=== PATIENT | male | born 1990 | race Caucasian/White ===

== ENCOUNTER 2016-04-18 14:30 | Outpatient (CLI) ==
--- NOTE | 2016-04-18 16:21 | MRI ---
EXAM: MRI lumbar spine without IV contrast. DATE: April 2016. HISTORY: Lumbar lumbar back pain. Disc syndrome. TECHNIQUE: Sagittal and axial T1W and T2W sequences of the lumbar spine along with sagittal IR and coronal T2W sequences were obtained using 1.2 Yasmine magnet. No IV contrast. COMPARISON: None. FINDINGS: There are four classic [id number] lumbar vertebra ( L1 through L4). At the lumbosac ral junction, there is pseudoarticulation of the left L5 transverse process with the left S1 sacral ala. Twelfth ribs appear hypoplastic. Minimal (5 degrees) leftward curvature of the lumbar spine is present, with the apex of curvature at L3-4. No acute lumbar fracture, subluxation, osseous malignancy, or pars interarticularis defect i s identified. Lumbar vertebra are normal in height. Bone marrow signal is normal. Tiny, chronic S chmorl's nodes are seen at L4 and L5 superior endplates. Disc desiccation and minor disc space narr owing are present at L4-5. 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 No sacral fracture or stress reaction is identified. Conus medullaris ter minates at L1. Visible spinal cord is normal. No retroperitoneal lymphadenopathy, paraspinal mass, or aortic aneurysm is detected. Paraspinal mus culature is symmetric bilaterally. Visible portions of the liver, pancreas, spleen, right adrenal g land, and kidneys are normal. Segmental analysis: T12-L1: Normal. L1-2: Normal. L2-3: Normal. L3-4: Minor concentric disc bulge, superimposed midline to left foraminal disc protrusion (3.1 mm A P x 2 cm transverse) causes mild central canal stenosis and mild narrowing of focal left foraminal o pening. The disc protrusion slightly posteriorly displaces the left L4 nerve root (still in the the cheryl sac). L4-5: Moderate posterior disc bulge (with midline annular fissure) extends from foramen to foramen, and combined with mild facet arthropathy causes mild central canal stenosis and mild narrowing at t he opening to each foramen. Each L4 nerve root contacts the disc bulge near the lateral margin of t he foramen. L5-S1: Normal. IMPRESSIONS: 1. Four classic lumbar vertebra, plus partial sacralization of L5. 2. Mild DDD and mild central canal stenoses at C3-4 and C4-5. 3. Mild foraminal stenoses at C3-4 and C4-5. Each L4 nerve root contacts the disc bulge near the f oramen, and could be a source for pain/radiculopathy. 4. L3-4 disc protrusion displacing the left L4 nerve root (while still in the thecal sac) could be a source for pain.
== END 2016-04-18 14:31 | disposition home or self-care (01) ==
LOC: RAD 14:30
PROVIDERS: ATTEND Chiropractor
DX: M51.36 Other intervertebral disc degeneration, lumbar region (principal)